=== PATIENT | female | born 1990 | race African-American/Black ===

== ENCOUNTER 2017-01-04 16:11 | Emergency (ER) | payer OTHER ==
[~2017-01-04] VITALS: Ht 170.2 cm; Wt 100.0 kg
[~2017-01-04 16:11] MED LIST: AMOXICILLIN500 MG OR; CIPROFLOXACN500 MG PO; MACRODANTIN100 MG OR; NO; PRE-NATAL OR; PRENATA3 PO; ROBITUSSIN AC10 ML OR; ULTRAM50 M1 PO; birth control
[2017-01-04 16:48] LABS: HEMATOCRIT 30.7 % (37.0-47.0); HEMOGLOBIN 9.5 g/dl (12.0-16.0); IMMATURE GRANULOCYTES 0.2 % (0.0-1.0); MEAN CELL VOLUME 91.4 fL CALC (80.0-100.0); MEAN CORPUSCULAR HGB 28.3 pG CALC (26.0-32.0); MEAN CORPUSCULAR HGB CONC 30.9 g/L CALC (32.0-36.0); NEUT# 1.97 thou/uL (2.00-7.15); RED BLOOD COUNT 3.36 mill/uL (4.20-5.60); RED CELL DISTRI WIDTH 17.4 % (11.5-15.5)
[2017-01-04 16:55] LABS: ALBUMIN 4.3 g/dL (3.2-5.0); ALKALINE PHOSPHATASE 63 u/l (38-126); ANION GAP 14 (6-22 (CALC)); BILIRUBIN, TOTAL 0.5 mg/dL (0.0-1.4); BUN 9 mg/dL (7-17); BUN/CREATININE RATIO 13 (12-20 (CALC)); CALCIUM 9.3 mg/dL (8.4-10.2); CARBON DIOXIDE 27 mmol/l (22-30); CHLORIDE 107 mmol/l (95-108); CREATININE 0.7 mg/dL (0.5-1.0); GFR > 60 ML/MIN (>=60 (CALC)); GFR FOR AFR.AMER. > 60 ML/MIN (>=60 (CALC)); GLUCOSE 93 mg/dL (65-105); POTASSIUM 3.6 mmol/l (3.5-5.1); SGOT/AST 18 u/l (14-36); SGPT/ALT 25 u/l (9-52); SODIUM 144 mmol/l (137-146); TOTAL PROTEIN 7.8 g/dL (6.3-8.2)
[2017-01-04 17:04] LABS: URINE BILIRUBIN - DIPSTICK NEGATIVE (NEGATIVE); URINE BLOOD DIPSTICK LARGE (NEGATIVE); URINE COLOR YELLOW; URINE GLUCOSE - DIPSTICK NEGATIVE (NEGATIVE); URINE KETONE NEGATIVE (NEGATIVE); URINE LEUK ESTERASE TRACE (NEGATIVE); URINE NITRITE - DIPSTICK NEGATIVE (Negative); URINE PROTEIN - DIPSTICK TRACE mg/dL (NEG-TRACE); URINE SPECIFIC GRAVITY >=1.030; URINE UROBILINOGEN - DIPSTICK 0.2 E.U./dL (0.2)
[2017-01-04 17:18] LABS: URINE CLARITY HAZY
[2017-01-04 17:24] LABS: URINE SQUAMOUS EPITHELIAL CELL FEW EPI/hpf (0-FEW)
[2017-01-04] MEDS ORDERED: PERCOCET 5/325M1 TAB PO (17:58)
[2017-01-04] MEDS ORDERED: TAMSULOSIN0.4 MG PO (17:58)
[2017-01-04] MEDS ORDERED: BACTRIM DS1 TAB PO (17:58)
[2017-01-04 18:21] VITALS: BP 108/57
== END 2017-01-04 18:23 | disposition home or self-care (01) | DRG 694 ==
LOC: ED 16:11
PROVIDERS: Emergency Medicine
DX: N20.1 Calculus of ureter (principal)

== ENCOUNTER 2022-09-21 08:56 | Emergency (ER) | payer BC ==
[~2022-09-21] VITALS: Ht 170.2 cm; Wt 101.4 kg
[~2022-09-21 08:56] MED LIST changes: +BACTRIM DS1 TAB PO; +PERCOCET 5/325M1 TAB PO; +TAMSULOSIN0.4 MG PO
[2022-09-21] MEDS ORDERED: AMOXICILLIN500 MG PO (10:39)
[2022-09-21 11:11] VITALS: BP 129/83
== END 2022-09-21 11:16 | disposition home or self-care (01) | DRG 153 ==
LOC: ED 08:56
DX: J02.9 Acute pharyngitis, unspecified (principal)